=== PATIENT | female | born 2000 | race Caucasian/White ===

== ENCOUNTER 2023-05-06 07:53 | Emergency (ER) | payer OTHER ==
[~2023-05-06] VITALS: Ht 162.6 cm; Wt 74.2 kg
[2023-05-06] MEDS ORDERED: ONDANSETRON 4MG 2ML VIAL IV ONE (09:10)
[2023-05-06] MEDS ORDERED: ACETAMINOPHEN TAB 650MG DOSE (2X325MG) PO ONE (09:10)
[2023-05-06] MEDS ORDERED: NS 1,000 ML IV ONE (09:10)
[2023-05-06 09:28] LABS: BASO % 0.3 % (0.0-1.0); EOS % 0.2 % (0.0-3.0); HEMATOCRIT 44.2 % (36.0-47.0); HEMOGLOBIN 14.5 g/dl (12.0-15.5); LYMPH # 1.3 10^3/uL (1.5-5.0); LYMPH % 11.9 % (24.0-44.0); MEAN CORPUSCULAR HEMOGLOBIN 28.9 pg (27.0-33.0); MEAN CORPUSCULAR HGB CONC 32.8 g/dl (32.0-36.5); MEAN CORPUSCULAR VOLUME 88.2 fl (80.0-96.0); MONO # 1.1 10^3/uL (0.0-0.8); MONO % 10.2 % (2.0-8.0); NEUTROPHILS # 8.2 10^3/uL (1.5-8.5); PLATELET COUNT, AUTOMATED 224 10^3/uL (150-450); RED BLOOD COUNT 5.01 10^6/uL (4.00-5.40); WHITE BLOOD COUNT 10.7 10^3/uL (4.0-10.0)
[2023-05-06 09:55] LABS: LIPASE 26 U/L (12-53)
[2023-05-06 09:57] LABS: ALBUMIN 3.8 G/DL (3.2-5.2); ALKALINE PHOSPHATASE 79 U/L (46-116); ALT/SGPT 24 U/L (7.0-40); AST/SGOT 22 U/L (<34); BILIRUBIN,DIRECT 0.2 MG/DL (<0.4); BILIRUBIN,TOTAL 0.5 MG/DL (0.3-1.2); BLOOD UREA NITROGEN 8 MG/DL (9-23); CALCIUM LEVEL 9.1 MG/DL (8.5-10.1); CARBON DIOXIDE LEVEL 28 MMOL/L (20-31); CHLORIDE LEVEL 105 MMOL/L (98-107); CREATININE FOR GFR 0.77 MG/DL (0.55-1.30); GLOMERULAR FILTRATION RATE > 60.0 (>60); GLUCOSE, FASTING 111 MG/DL (60-100); HCG, SERUM QUALITATIVE NEGATIVE (NEGATIVE); POTASSIUM SERUM 4.1 MMOL/L (3.5-5.1); SODIUM LEVEL 141 MMOL/L (136-145); TOTAL PROTEIN 7.1 G/DL (5.7-8.2)
[2023-05-06 10:05] LABS: RSV AMPLIFICATION NEGATIVE (NEGATIVE)
[2023-05-06] MEDS ORDERED: ISOVUE-370 76% 100ML VIAL As Ordered ONE (10:31)
[2023-05-06] MEDS ORDERED: REGL5TAB2 PO (11:32)
[2023-05-06] MEDS ORDERED: METR-265 PO (11:32)
[2023-05-06] MEDS ORDERED: CIPR-249 PO (11:32)
[2023-05-06 11:58] VITALS: BP 129/59; TEMP 98.3; O2SAT 96
== END 2023-05-06 12:08 | disposition home or self-care (01) ==
LOC: M ED 07:53
DX: K52.9 Noninfective gastroenteritis and colitis, unspecified (principal); F17.200 Nicotine dependence, unspecified, uncomplicated
CPT/HCPCS: 74177; 80048; 80076; 81001; 83690; 84703; 85025; 87631; 96361; 96374; 99283; J2405; Q9967

== ENCOUNTER 2023-05-15 16:34 | Emergency (ER) | payer OTHER ==
[~2023-05-15] VITALS: Ht 162.6 cm; Wt 73.7 kg
[~2023-05-15 16:34] MED LIST: CIPR-249 PO; METR-265 PO; REGL5TAB2 PO
[2023-05-15] MEDS ORDERED: NS 1,000 ML IV ONE (20:05)
[2023-05-15] MEDS ORDERED: KETOROLAC 30 MG/ML 1ML VIAL IV ONE (20:05)
[2023-05-15] MEDS ORDERED: ONDANSETRON 4MG 2ML VIAL IV ONE (20:05)
[2023-05-15 20:44] LABS: BASO % 0.5 % (0.0-1.0); EOS # 0.1 10^3/uL (0.0-0.5); EOS % 1.4 % (0.0-3.0); HEMATOCRIT 38.2 % (36.0-47.0); HEMOGLOBIN 12.9 g/dl (12.0-15.5); LYMPH # 2.4 10^3/uL (1.5-5.0); LYMPH % 28.2 % (24.0-44.0); MEAN CORPUSCULAR HEMOGLOBIN 29.3 pg (27.0-33.0); MEAN CORPUSCULAR HGB CONC 33.8 g/dl (32.0-36.5); MEAN CORPUSCULAR VOLUME 86.8 fl (80.0-96.0); MONO # 1.1 10^3/uL (0.0-0.8); MONO % 12.4 % (2.0-8.0); NEUTROPHILS # 4.9 10^3/uL (1.5-8.5); NEUTROPHILS % 57.3 % (36.0-66.0); PLATELET COUNT, AUTOMATED 298 10^3/uL (150-450); WHITE BLOOD COUNT 8.5 10^3/uL (4.0-10.0)
[2023-05-15 20:58] LABS: ERYTHROCYTE SEDIMENTATION RATE 13 mm/hr (0-20)
[2023-05-15 21:00] LABS: LIPASE 27 U/L (12-53)
[2023-05-15 21:02] LABS: ALBUMIN 3.4 G/DL (3.2-5.2); ALKALINE PHOSPHATASE 69 U/L (46-116); ALT/SGPT 30 U/L (7.0-40); AST/SGOT 24 U/L (<34); BILIRUBIN,DIRECT 0.1 MG/DL (<0.4); BILIRUBIN,TOTAL 0.3 MG/DL (0.3-1.2); BLOOD UREA NITROGEN 10 MG/DL (9-23); CALCIUM LEVEL 8.5 MG/DL (8.5-10.1); CARBON DIOXIDE LEVEL 25 MMOL/L (20-31); CHLORIDE LEVEL 107 MMOL/L (98-107); CREATININE FOR GFR 0.69 MG/DL (0.55-1.30); GLOMERULAR FILTRATION RATE > 60.0 (>60); GLUCOSE, FASTING 112 MG/DL (60-100); POTASSIUM SERUM 3.9 MMOL/L (3.5-5.1); SODIUM LEVEL 141 MMOL/L (136-145); TOTAL PROTEIN 6.2 G/DL (5.7-8.2)
[2023-05-15 21:08] LABS: HCG, SERUM QUALITATIVE NEGATIVE (NEGATIVE)
[2023-05-15 22:51] VITALS: BP 121/60; TEMP 98.2; O2SAT 97
== END 2023-05-15 22:53 | disposition home or self-care (01) ==
LOC: M ED 16:34
DX: R19.7 Diarrhea, unspecified (principal); R10.9 Unspecified abdominal pain
CPT/HCPCS: 80048; 80076; 83690; 84703; 85025; 85652; 86140; 96361; 96374; 99284; J1885; J2405

== ENCOUNTER 2023-09-03 07:02 | Emergency (ER) | payer OTHER ==
[~2023-09-03] VITALS: Ht 162.6 cm; Wt 73.1 kg
[2023-09-03 10:19] VITALS: BP 117/66; TEMP 98.3; O2SAT 99
[2023-09-03] MEDS ORDERED: NAPR-837 PO (11:01)
[2023-09-03] MEDS ORDERED: CYCL-707 PO (11:01)
== END 2023-09-03 11:17 | disposition home or self-care (01) ==
LOC: M ED 07:02
DX: S33.5XXA Sprain of ligaments of lumbar spine, initial encounter (principal); X50.0XXA Overexertion from strenuous movement or load, initial encounter; Y92.89 Other specified places as the place of occurrence of the external cause; Y93.89 Activity, other specified; Y99.8 Other external cause status; F17.200 Nicotine dependence, unspecified, uncomplicated

== ENCOUNTER 2024-03-26 09:27 | Emergency (ER) | payer OTHER ==
[~2024-03-26] VITALS: Ht 162.6 cm; Wt 93.2 kg
[~2024-03-26 09:27] MED LIST changes: +CYCL-707 PO; +NAPR-837 PO
[2024-03-26 10:12] LABS: HEMATOCRIT 39.1 % (36.0-47.0); HEMOGLOBIN 13.2 g/dl (12.0-15.5); MEAN CORPUSCULAR HEMOGLOBIN 30.1 pg (27.0-33.0); MEAN CORPUSCULAR HGB CONC 33.8 g/dl (32.0-36.5); MEAN CORPUSCULAR VOLUME 89.3 fl (80.0-96.0); PLATELET COUNT, AUTOMATED 248 10^3/uL (150-450); RED BLOOD COUNT 4.38 10^6/uL (4.00-5.40); WHITE BLOOD COUNT 8.4 10^3/uL (4.0-10.0)
[2024-03-26 10:35] LABS: BLOOD UREA NITROGEN 12 MG/DL (9-23); CALCIUM LEVEL 8.5 MG/DL (8.5-10.1); CARBON DIOXIDE LEVEL 27 MMOL/L (20-31); CHLORIDE LEVEL 107 MMOL/L (98-107); CREATININE FOR GFR 0.68 MG/DL (0.55-1.30); GLOMERULAR FILTRATION RATE > 60.0 (>60); GLUCOSE, FASTING 77 MG/DL (60-100); POTASSIUM SERUM 4.1 MMOL/L (3.5-5.1); SODIUM LEVEL 139 MMOL/L (136-145)
[2024-03-26 10:37] LABS: HCG, SERUM QUALITATIVE POSITIVE (NEGATIVE)
[2024-03-26 11:23] LABS: HCG, SERUM QUANTITATIVE 1795.5 MIU/ML (<4.2)
[2024-03-26 12:10] VITALS: BP 127/77; TEMP 98.5; O2SAT 99
[2024-03-26] MEDS: RHOGAM 300MCG (1500IU) INJ IM ONE (12:10)
[2024-03-26] MEDS ORDERED: MISO200T83 VG (12:17)
== END 2024-03-26 13:00 | disposition home or self-care (01) ==
LOC: M ED 09:27
DX: O03.9 Complete or unspecified spontaneous abortion without complication (principal); Z3A.01 Less than 8 weeks gestation of pregnancy
CPT/HCPCS: 76801; 76817; 80048; 84702; 84703; 85027; 86850; 86900; 86901; 93976; 96372; 99283; J2792

== ENCOUNTER 2025-02-16 11:06 | Emergency (ER) | payer OTHER ==
[~2025-02-16 11:06] MED LIST changes: +MISO200T83 VG
[2025-02-16] MEDS ORDERED: TUMS500C PO (11:33)
[2025-02-16] MEDS ORDERED: PRENTAB9 PO (11:33)
== END 2025-02-16 11:30 | disposition admitted as inpatient to this hospital (09) ==
LOC: M ED 11:06
DX: Z53.21 Procedure and treatment not carried out due to patient leaving prior to being seen by health care provider (principal)

== ENCOUNTER 2025-02-16 11:16 | Outpatient (CLI) | payer OTHER ==
[~2025-02-16] VITALS: Ht 162.6 cm; Wt 89.2 kg
[2025-02-16] MEDS ORDERED: PRENTAB9 PO (11:33)
[2025-02-16] MEDS ORDERED: TUMS500C PO (11:33)
[2025-02-16 11:35] VITALS: BP 121/77
[2025-02-16] MEDS ORDERED: HOME MED LIST COMPLETE! XX SCH (11:35)
[2025-02-16 11:58] VITALS: BP 108/57
[2025-02-16 13:30] VITALS: BP 113/73
== END 2025-02-16 13:40 | disposition home or self-care (01) ==
LOC: M LDO 11:16
PROVIDERS: ATTEND Advanced Practice Midwife
DX: O26.893 Other specified pregnancy related conditions, third trimester (principal); R06.02 Shortness of breath; Z67.11 Type A blood, Rh negative; Z3A.30 30 weeks gestation of pregnancy
CPT/HCPCS: 59025; G0463

== ENCOUNTER 2025-02-25 11:23 | Emergency (ER) | payer OTHER ==
[~2025-02-25] VITALS: Ht 162.6 cm; Wt 90.1 kg
[~2025-02-25 11:23] MED LIST changes: +PRENTAB9 PO; +TUMS500C PO
[2025-02-25 11:25] VITALS: BP 121/71; TEMP 96.2; O2SAT 98
== END 2025-02-25 11:46 | disposition admitted as inpatient to this hospital (09) ==
LOC: M ED 11:23
DX: Z53.21 Procedure and treatment not carried out due to patient leaving prior to being seen by health care provider (principal)

== ENCOUNTER 2025-02-25 11:48 | Outpatient (CLI) | payer OTHER ==
[~2025-02-25] VITALS: Ht 162.6 cm; Wt 81.9 kg
[2025-02-25 12:09] VITALS: BP 118/58
[2025-02-25 13:25] LABS: KETONE, URINE AUTO RFX NEGATIVE (NEGATIVE); MUCUS, URINE RFX SMALL (NEGATIVE); NITRITE, URINE AUTO RFX NEGATIVE (NEGATIVE); RBC, URINE AUTO RFX 1 /HPF (0-3); SQUAM EPITHELIAL CELL UR AURFX 6 /HPF (0-6); WBC, URINE AUTO RFX 3 /HPF (0-3)
[2025-02-25 13:26] LABS: LEUKOCYTE ESTERASE UR AUTO RFX TRACE (NEGATIVE)
[2025-02-25] MEDS ORDERED: HOME MED LIST COMPLETE! XX SCH (16:05)
== END 2025-02-25 13:10 | disposition home or self-care (01) ==
LOC: M LDO 11:48
PROVIDERS: ATTEND Advanced Practice Midwife
DX: O26.893 Other specified pregnancy related conditions, third trimester (principal); R06.02 Shortness of breath; R10.11 Right upper quadrant pain; Z3A.31 31 weeks gestation of pregnancy
CPT/HCPCS: 59025; 81001; 87086; G0463

== ENCOUNTER → 2025-03-29 | Outpatient (REF) | payer OTHER | LOC: M PLALAB 14:59 | PROVIDERS: ATTEND Obstetrics & Gynecology | DX: Z34.93 Encounter for supervision of normal pregnancy, unspecified, third trimester (principal); Z3A.36 36 weeks gestation of pregnancy ==

== ENCOUNTER 2025-04-25 23:54 | Inpatient (IN) | payer OTHER ==
[~2025-04-25] VITALS: Ht 162.6 cm; Wt 94.2 kg
[2025-04-26] VITALS (42 sets, daily range): BP systolic 96–141; BP diastolic 57–89; O2SAT 96–99
[2025-04-26] MEDS ORDERED: AMPICILLIN SOD 2 GM in DEXTROSE 5% (D5W) MINI-BAG PLU 100 ML IV STA (00:09)
[2025-04-26] MEDS: LACTATED RINGER'S 1000 ML IV STA (00:09)
[2025-04-26] MEDS ORDERED: LIDOCAINE 1% MDV 20 ML VIAL INFIL PRN (00:10)
[2025-04-26] MEDS ORDERED: METHYLERGONOVINE MALEATE 0.2 MG/ML 1 ML VIAL IM PRN (00:10)
[2025-04-26] MEDS ORDERED: CARBOPROST TROMETHAMINE 250 MCG/ML AMP IM PRN (00:10)
[2025-04-26] MEDS ORDERED: OXYTOCIN DRIP 30 UNITS in IV 1 EA IV PRN (00:10)
[2025-04-26] MEDS ORDERED: OXYTOCIN INJ 10UNITS/ML 1ML VIAL IM PRN (00:10)
[2025-04-26 00:53] LABS: PLATELET COUNT, AUTOMATED 237 10^3/uL (150-450)
[2025-04-26] MEDS: miSOPROStol 50 MCG 1/2 TABLET PO SCH (01:00)
[2025-04-26] MEDS ORDERED: HOME MED LIST COMPLETE! XX SCH (01:50)
[2025-04-26 02:39] LABS: HIV 1&2 SCREEN NEGATIVE (NEGATIVE)
[2025-04-26 02:46] LABS: HEPATITIS C VIRUS ABY INDEX < 0.02 INDEX (<0.8)
[2025-04-26] MEDS ORDERED: AMPICILLIN SOD 1 GM in DEXTROSE 5% (D5W) ADV/MINI-BAG 50 ML IV SCH (04:10)
[2025-04-26] MEDS ORDERED: **PENDING PCN ENTRY XX SCH (09:00)
[2025-04-26] MEDS: miSOPROStol 25 MCG 1/4 TABLET PV ONE (10:28)
[2025-04-26] MEDS: BUTORPHANOL 2 MG/ML 1 ML VIAL IV ONE (11:23)
[2025-04-26] MEDS: ONDANSETRON 4MG 2ML VIAL IV ONE (12:18)
[2025-04-26] MEDS: LR 1,000 ML IV SCH ×2 (13:14→17:45)
[2025-04-26] MEDS ORDERED: FENTANYL 2 MCG/ML ROPIVACAINE 0.2% IN 0.9% NACL 100 ML IVBAG As Ordered ONE (13:30)
[2025-04-26] MEDS ORDERED: NALOXONE INJ 0.4 MG/1 ML VIAL IV PRN (13:40)
[2025-04-26] MEDS ORDERED: EPIDURAL/PCA KEYS XX PRN (13:40)
[2025-04-26] MEDS ORDERED: diphenhydrAMINE 50 MG/ML VIAL IV PRN (13:40)
[2025-04-26] MEDS ORDERED: ONDANSETRON 4MG 2ML VIAL IV PRN (13:40)
[2025-04-26] MEDS ORDERED: LR 500 ML IV PRN (13:40)
[2025-04-26] MEDS ORDERED: PEN G POT 3,000,000 UNIT/50 ML 3,000,000 UNIT in IV 1 EA IV SCH (14:05)
[2025-04-26] MEDS: PENICILLIN G POTASSIUM 5 MU IV 5 MU in DEXTROSE 5% (D5W) MINI-BAG PLU 100 ML IV STA (14:39)
[2025-04-26] MEDS: FENTANYL/ROPIVACAINE/NACL BAG 100 ML EPIDURAL SCH (15:00)
[2025-04-26] MEDS: OXYTOCIN DRIP 30 UNITS in IV 1 EA IV SCH (16:14)
[2025-04-26] MEDS: PEN G POT 3,000,000 UNIT/50 ML 3,000,000 UNIT in IV 1 EA IV SCH (18:41)
[2025-04-27] MEDS ORDERED: MORPHINE 4 MG/ML 1 ML VIAL IV ONE (00:35)
[2025-04-27] MEDS ORDERED: ACETAMINOPHEN 325 MG TAB PO PRN (01:05)
[2025-04-27] MEDS ORDERED: METHYLERGONOVINE MALEATE 0.2 MG TAB PO PRN (01:05)
[2025-04-27] MEDS: IBUPROFEN 800 MG TAB PO PRN (02:04)
[2025-04-27] MEDS: TRANEXAMIC ACID INJection 1,000 MG in NS 100 ML IV PRN (02:18)
[2025-04-27 02:32] VITALS: BP 115/67; O2SAT 98
[2025-04-27] MEDS: ACETAMINOPHEN 500 MG TAB PO PRN (05:21)
[2025-04-27 05:26] VITALS: BP 109/58; O2SAT 98
[2025-04-27 07:25] LABS: PLATELET COUNT, AUTOMATED 202 10^3/uL (150-450)
[2025-04-27] MEDS: DOCUSATE SODIUM 100 MG CAPSULE PO PRN (08:48)
[2025-04-27] MEDS: DIBUCAINE 1% OINTMENT 30 GM TOP PRN (08:48)
[2025-04-27] MEDS: PRENATAL VITAMINS CHEWABLE TABLET PO SCH (08:48)
[2025-04-27 18:00] VITALS: BP 117/72; O2SAT 98
[2025-04-28 05:47] VITALS: BP 131/71; O2SAT 98
[2025-04-28 07:03] LABS: PLATELET COUNT, AUTOMATED 208 10^3/uL (150-450)
[2025-04-28] MEDS: IBUPROFEN 600 MG TAB PO PRN (07:33)
[2025-04-28] MEDS: MEASLES,MUMPS,RUBELLA VACCINE INJ (MMR-II) SC.IMMUN ONE (10:28)
[2025-04-28] MEDS: RHOGAM 300MCG (1500IU) INJ IM SCH (11:28)
[2025-04-28] MEDS ORDERED: IBUP80TA PO (14:27)
[2025-04-28] MEDS ORDERED: ACET-683 PO (14:27)
== END 2025-04-28 14:58 | disposition home or self-care (01) | DRG 807 ==
LOC: M LDI 23:54 → M OBS 04-27 02:30
PROVIDERS: ADMIT Advanced Practice Midwife; ATTEND Student in an Organized Health Care Education/Training Program
PROC: 3E0P7GC Introduction of Other Therapeutic Substance into Female Reproductive, Via Natural or Artificial Opening (ICD-10-PCS; 2025-04-25)
PROC: 10E0XZZ Delivery of Products of Conception, External Approach (ICD-10-PCS; principal; 2025-04-26)
PROC: 0UCMXZZ Extirpation of Matter from Vulva, External Approach (ICD-10-PCS; 2025-04-27)
DX: O99.824 Streptococcus B carrier state complicating childbirth (principal); Z37.0 Single live birth; Z3A.39 39 weeks gestation of pregnancy; O70.0 First degree perineal laceration during delivery; O71.7 Obstetric hematoma of pelvis